=== PATIENT | male | born 1990 | race African-American/Black ===

== ENCOUNTER 2018-07-03 16:59 | Emergency (ER) | payer MEDICAID, OTHER ==
[~2018-07-03] VITALS: Ht 175.3 cm; Wt 86.0 kg
[2018-07-03] MEDS ORDERED: HYDROCODONE/ACETAMINOPHEN 5/325MG TABLET PO ONE (18:15)
[2018-07-03] MEDS ORDERED: KETOROLAC 60MG/2ML VIAL IM ONE (19:30)
[2018-07-03 19:54] VITALS: BP 138/88
== END 2018-07-03 19:54 | disposition home or self-care (01) ==
LOC: ER 16:59
DX: S80.01XA Contusion of right knee, initial encounter (principal); J45.909 Unspecified asthma, uncomplicated; F12.10 Cannabis abuse, uncomplicated; Z98.890 Other specified postprocedural states; W18.39XA Other fall on same level, initial encounter; Y93.67 Activity, basketball; Y92.310 Basketball court as the place of occurrence of the external cause; Y99.8 Other external cause status
CPT/HCPCS: 73562; 96372; 99283; J1885; L1830

== ENCOUNTER 2018-09-11 00:31 | Emergency (ER) | payer MEDICAID, OTHER ==
[~2018-09-11] VITALS: Ht 170.2 cm; Wt 75.3 kg
[2018-09-11 00:55] VITALS: BP 160/119
== END 2018-09-11 02:05 | disposition left against medical advice (07) ==
LOC: ER 00:31
DX: R06.02 Shortness of breath (principal); Z53.21 Procedure and treatment not carried out due to patient leaving prior to being seen by health care provider

== ENCOUNTER 2018-09-24 18:25 | Emergency (ER) | payer MEDICAID ==
[~2018-09-24] VITALS: Ht 175.3 cm; Wt 70.0 kg
[2018-09-24 20:30] VITALS: BP 124/78
== END 2018-09-24 20:33 | disposition home or self-care (01) ==
LOC: ER 18:25
DX: F12.10 Cannabis abuse, uncomplicated (principal); F15.10 Other stimulant abuse, uncomplicated; R45.1 Restlessness and agitation; F17.210 Nicotine dependence, cigarettes, uncomplicated; Z71.6 Tobacco abuse counseling
CPT/HCPCS: 99283; 99406

== ENCOUNTER 2019-02-17 11:51 | Emergency (ER) | payer MEDICAID ==
[~2019-02-17] VITALS: Ht 175.3 cm; Wt 77.0 kg
[2019-02-17] MEDS ORDERED: KETOROLAC 30MG/ML VIAL IM ONE (13:15)
[2019-02-17 13:43] VITALS: BP 137/77
== END 2019-02-17 13:34 | disposition home or self-care (01) ==
LOC: ER 11:51
DX: M79.661 Pain in right lower leg (principal); R03.0 Elevated blood-pressure reading, without diagnosis of hypertension
CPT/HCPCS: 96372; 99283; J1885

== ENCOUNTER 2019-05-07 08:35 | Emergency (ER) | payer MEDICAID ==
[~2019-05-07] VITALS: Ht 175.3 cm; Wt 81.0 kg
[2019-05-07 08:55] VITALS: BP 127/80
[2019-05-07] MEDS ORDERED: FLUORESCEIN SODIUM 1MG/STRIP RIGHTEYE ONE (09:30)
[2019-05-07] MEDS ORDERED: TETRACAINE 0.5% OPHTH DROPS 4ML RIGHTEYE ONE (09:30)
[2019-05-07] MEDS ORDERED: ERYTHROMYCIN BASE 0.5% OPHTH OINT 3.5GM RIGHTEYE ONE (09:45)
== END 2019-05-07 10:09 | disposition home or self-care (01) ==
LOC: ER 08:35
DX: H10.9 Unspecified conjunctivitis (principal); J45.909 Unspecified asthma, uncomplicated; F12.10 Cannabis abuse, uncomplicated; F15.10 Other stimulant abuse, uncomplicated; Z98.890 Other specified postprocedural states
CPT/HCPCS: 99282

== ENCOUNTER 2019-05-17 05:51 | Emergency (ER) | payer MEDICAID ==
[~2019-05-17] VITALS: Ht 175.3 cm; Wt 76.0 kg
[2019-05-17] MEDS ORDERED: IBUPROFEN 800MG TABLET PO ONE (06:30)
[2019-05-17] MEDS ORDERED: OXYCODONE HCL/ACETAMINOPHEN 5/325MG TABLET PO ONE ×2 (06:30→08:00)
[2019-05-17 08:04] VITALS: BP 115/79
== END 2019-05-17 08:11 | disposition left against medical advice (07) ==
LOC: ER 05:51
DX: M25.521 Pain in right elbow (principal); M25.571 Pain in right ankle and joints of right foot; M25.551 Pain in right hip; M25.531 Pain in right wrist; J45.909 Unspecified asthma, uncomplicated; F15.10 Other stimulant abuse, uncomplicated; F12.10 Cannabis abuse, uncomplicated; Z98.890 Other specified postprocedural states; V47.5XXA Car driver injured in collision with fixed or stationary object in traffic accident, initial encounter; Y93.89 Activity, other specified; Y92.488 Other paved roadways as the place of occurrence of the external cause; Y99.8 Other external cause status
CPT/HCPCS: 73080; 73502; 73610; 73630; 99284

== ENCOUNTER 2019-06-07 20:27 | Emergency (ER) | payer MEDICAID ==
[~2019-06-07] VITALS: Ht 175.3 cm; Wt 77.0 kg
[2019-06-07 20:53] VITALS: BP 149/86
== END 2019-06-07 21:50 | disposition left against medical advice (07) ==
LOC: ER 20:27
DX: Z53.21 Procedure and treatment not carried out due to patient leaving prior to being seen by health care provider (principal)

== ENCOUNTER 2019-11-07 02:36 | Emergency (ER) | payer MEDICAID, OTHER ==
[~2019-11-07] VITALS: Ht 172.7 cm; Wt 76.0 kg
[2019-11-07] MEDS ORDERED: ONDANSETRON HCL 4MG/2ML INJ IV STA (04:17)
[2019-11-07] MEDS ORDERED: FAMOTIDINE 20MG/2ML VIAL IV STA (04:17)
[2019-11-07] MEDS ORDERED: SODIUM CHLORIDE 0.9% 1,000 ML IV ONE (04:17)
[2019-11-07] MEDS ORDERED: LORAZEPAM 2MG/ML CPJ IV ONE (04:30)
[2019-11-07 04:42] LABS: BASOPHILS % 1.1 % (0.0-2.0); EOSINOPHILS % 0.2 % (0.0-5.0); HEMATOCRIT. 47.1 % (42.0-52.0); HEMOGLOBIN. 15.8 g/dL (14.0-18.0); LYMPHOCYTES % 10.5 % (20.0-50.0); MEAN CORPUSCULAR VOLUME 80.2 fL (80.0-94.0); MEAN PLATELET VOLUME 8.6 fl (7.4-10.4); MONOCYTES % 4.3 % (2.0-8.0); NEUTROPHILS % 83.9 % (40.0-76.0); PLATELET 275 x1000/uL (130-400); RED BLOOD CELL COUNT 5.87 mill/uL (4.7-6.1); RED CELL DISTRIBUTION WIDTH 13.9 % (11.6-14.6)
[2019-11-07 04:45] LABS: CHLORIDE 105 mEq/L (98-107)
[2019-11-07 04:46] LABS: PROTHROMBIN TIME 11.3 sec (9.6-11.0)
[2019-11-07 04:48] VITALS: BP 142/88
[2019-11-07 04:49] LABS: ETHANOL BLOOD < 10 mg/dL
[2019-11-07 05:55] LABS: CLARITY URINE CLEAR (CLEAR); COLOR URINE YELLOW (YELLOW); KETONES URINE NEGATIVE (NEGATIVE); LEUKOCYTE ESTERASE URINE NEGATIVE (NEGATIVE); NITRITE URINE NEGATIVE (NEGATIVE); OCCULT BLOOD URINE NEGATIVE (NEGATIVE); PH URINE 7.5 (4.5-8.0); PROTEIN URINE NEGATIVE (NEGATIVE)
[2019-11-07 06:02] LABS: *AMPHETAMINES SCREEN URINE NEGATIVE (NEGATIVE); *BARBITURATES SCREEN URINE NEGATIVE (NEGATIVE); *BENZODIAZEPINES SCREEN URINE NEGATIVE (NEGATIVE); *COCAINE SCREEN URINE PRESUMTIVE POSITIVE (NEGATIVE); METHADONE URINE SCREEN NEGATIVE (NEGATIVE); OPIATES URINE SCREEN NEGATIVE (NEGATIVE)
[2019-11-07 06:03] LABS: CANNABINOID URINE SCREEN PRESUMTIVE POSITIVE (NEGATIVE); PHENCYCLIDINE URINE SCREEN NEGATIVE (NEGATIVE)
== END 2019-11-07 06:16 | disposition home or self-care (01) ==
LOC: ER 02:36
DX: R11.2 Nausea with vomiting, unspecified (principal); F41.9 Anxiety disorder, unspecified; F14.10 Cocaine abuse, uncomplicated; F10.10 Alcohol abuse, uncomplicated; Y90.0 Blood alcohol level of less than 20 mg/100 ml; J45.909 Unspecified asthma, uncomplicated; F12.10 Cannabis abuse, uncomplicated
CPT/HCPCS: 36415; 80053; 80305; 80320; 81003; 83690; 85025; 85610; 96361; 96374; 96375; 99284; J2060; J2405; J3490; J7030; G0480

== ENCOUNTER 2020-01-08 13:47 | Emergency (ER) | payer MEDICAID, OTHER ==
[~2020-01-08] VITALS: Ht 175.3 cm; Wt 77.0 kg
[2020-01-08] MEDS ORDERED: KETOROLAC 60MG/2ML VIAL IM STA (14:34)
[2020-01-08] MEDS ORDERED: MORPHINE SULFATE 10 MG/ML CPJ IM ONE (15:15)
[2020-01-08] MEDS ORDERED: LORAZEPAM 1MG TABLET PO ONE (15:15)
[2020-01-08 16:39] VITALS: BP 138/89
== END 2020-01-08 16:41 | disposition home or self-care (01) ==
LOC: ER 13:47
DX: S42.292A Other displaced fracture of upper end of left humerus, initial encounter for closed fracture (principal); Y04.0XXA Assault by unarmed brawl or fight, initial encounter; Y93.89 Activity, other specified; Y92.89 Other specified places as the place of occurrence of the external cause
CPT/HCPCS: 23650; 73030; 96372; 99284; J1885; J2270; L3670

== ENCOUNTER 2020-05-17 00:59 | Emergency (ER) | payer MEDICAID ==
[~2020-05-17] VITALS: Ht 175.3 cm; Wt 80.0 kg
[2020-05-17] MEDS ORDERED: IBUPROFEN 600MG TABLET PO ONE (01:15)
[2020-05-17 01:25] VITALS: BP 131/67
== END 2020-05-17 01:34 | disposition home or self-care (01) ==
LOC: ER 00:59
DX: M54.2 Cervicalgia (principal); J45.909 Unspecified asthma, uncomplicated; F12.90 Cannabis use, unspecified, uncomplicated
CPT/HCPCS: 99283

== ENCOUNTER 2020-07-14 04:32 | Emergency (ER) | payer MEDICAID ==
[~2020-07-14] VITALS: Ht 175.3 cm; Wt 77.0 kg
[2020-07-14] MEDS ORDERED: OXYCODONE HCL/ACETAMINOPHEN 5/325MG TABLET PO ONE (06:45)
[2020-07-14 08:51] VITALS: BP 118/78
== END 2020-07-14 08:52 | disposition home or self-care (01) ==
LOC: ER 04:32
DX: M25.532 Pain in left wrist (principal); M25.562 Pain in left knee; J45.909 Unspecified asthma, uncomplicated; Z98.890 Other specified postprocedural states
CPT/HCPCS: 29125; 73030; 73100; 73560; 99284

== ENCOUNTER 2020-08-01 10:34 | Emergency (ER) | payer MEDICAID ==
[~2020-08-01] VITALS: Ht 175.3 cm; Wt 77.0 kg
[2020-08-01] MEDS ORDERED: KETOROLAC 60MG/2ML VIAL IM STA (10:49)
[2020-08-01 11:20] LABS: BASOPHILS % 1.6 % (0.0-2.0); EOSINOPHILS % 1.8 % (0.0-5.0); HEMOGLOBIN. 15.1 g/dL (14.0-18.0); LYMPHOCYTES % 26.2 % (20.0-50.0); MEAN CORPUSCULAR HEMOGLOBIN 26.4 pg (28.0-32.0); MEAN CORPUSCULAR VOLUME 78.8 fL (80.0-94.0); MONOCYTES % 5.5 % (2.0-8.0); NEUTROPHILS % 64.9 % (40.0-76.0); PLATELET 314 x1000/uL (130-400); RED BLOOD CELL COUNT 5.71 mill/uL (4.7-6.1); RED CELL DISTRIBUTION WIDTH 13.9 % (11.6-14.6)
[2020-08-01 11:27] LABS: CHLORIDE 109 mEq/L (98-107)
[2020-08-01 11:30] LABS: ETHANOL BLOOD < 10 mg/dL
[2020-08-01 12:12] LABS: CLARITY URINE TURBID (CLEAR); COLOR URINE YELLOW (YELLOW); KETONES URINE NEGATIVE (NEGATIVE); LEUKOCYTE ESTERASE URINE NEGATIVE (NEGATIVE); NITRITE URINE NEGATIVE (NEGATIVE); OCCULT BLOOD URINE NEGATIVE (NEGATIVE); PROTEIN URINE NEGATIVE (NEGATIVE); SPECIFIC GRAVITY URINE 1.023 (1.005-1.030)
[2020-08-01 12:52] LABS: *AMPHETAMINES SCREEN URINE NEGATIVE (NEGATIVE); *BARBITURATES SCREEN URINE NEGATIVE (NEGATIVE); *BENZODIAZEPINES SCREEN URINE NEGATIVE (NEGATIVE); *COCAINE SCREEN URINE NEGATIVE (NEGATIVE); METHADONE URINE SCREEN NEGATIVE (NEGATIVE); OPIATES URINE SCREEN NEGATIVE (NEGATIVE)
[2020-08-01 12:53] LABS: CANNABINOID URINE SCREEN PRESUMTIVE POSITIVE (NEGATIVE); PHENCYCLIDINE URINE SCREEN NEGATIVE (NEGATIVE)
[2020-08-01 13:45] VITALS: BP 143/92
[2020-08-01 14:12] LABS: CHLORIDE 108 mEq/L (98-107)
== END 2020-08-01 16:09 | disposition home or self-care (01) ==
LOC: ER 10:41
DX: R10.9 Unspecified abdominal pain (principal); M54.6 Pain in thoracic spine; R51.9 Headache, unspecified; J45.909 Unspecified asthma, uncomplicated; Z20.822 Contact with and (suspected) exposure to COVID-19; Z98.890 Other specified postprocedural states
CPT/HCPCS: 36415; 71045; 76705; 76770; 80048; 80053; 80305; 80320; 81003; 85025; 93005; 96372; 99285; C9803; J1885; U0003; G0480

== ENCOUNTER 2020-08-02 12:25 | Emergency (ER) | payer MEDICAID ==
[~2020-08-02] VITALS: Ht 175.3 cm; Wt 77.0 kg
[2020-08-02] MEDS ORDERED: LORAZEPAM 2MG/ML CPJ IM STA (12:38)
[2020-08-02] MEDS ORDERED: KETOROLAC 60MG/2ML VIAL IM STA (12:38)
[2020-08-02 13:09] VITALS: BP 134/99
== END 2020-08-02 14:33 | disposition home or self-care (01) ==
LOC: ER 12:25
DX: R51.9 Headache, unspecified (principal); M54.89 Other dorsalgia; F41.9 Anxiety disorder, unspecified; R07.81 Pleurodynia; R03.0 Elevated blood-pressure reading, without diagnosis of hypertension; W17.89XA Other fall from one level to another, initial encounter; Y93.55 Activity, bike riding; Y92.410 Unspecified street and highway as the place of occurrence of the external cause; F19.10 Other psychoactive substance abuse, uncomplicated; F12.90 Cannabis use, unspecified, uncomplicated; J45.909 Unspecified asthma, uncomplicated
CPT/HCPCS: 70450; 96372; 99284; J1885; J2060